=== PATIENT | female | born 1940 | race Caucasian/White ===

== ENCOUNTER → 2016-08-18 | Outpatient (CLI) | payer OTHER ==
[~2016-08-18] MED LIST: ALBUAER2 INH; ALPR-411 PO; AMLO-114 PO; ASPEC81 PO; ASPI81TA21 PO; ASPITAB PO; ATOR10TA88 PO; CALC-393 PO; CHOLTAB3 PO; CLTP PO; HYDR200T5 PO; HYZ/10015 PO; IRON5TAB PO; LXT PO; MECL1TAB42 PO; MECL25TA2 PO; MISCCAP80 PO; OPTIRAY 320 IV PRN; OXYC-57 PO; PARO1TAB27 PO; PRLSR20 PO; PSYL48.59 PO; PXL/40 PO; VNTHFA/IN INH
--- NOTE | 2016-08-18 16:14 | DIAGNOSTIC IMAGING REPORT ---
CT OF THE ABDOMEN AND PELVIS WITH CONTRAST CLINICAL HISTORY: Constipation, abdominal distention and bloating. COMPARISON STUDY: Abdominal ultrasound December 25, 2015. TECHNIQUE: Following IV administration of 92 mL of Optiray-320, axial images of the abdomen and pelvis were obtained from the lung bases to the proximal femurs. Images were reviewed in the axial, sagittal, and coronal planes. IV contrast was administered without complication. Oral contrast was administered. CT DOSE: 989.88 mGy.cm FINDINGS: There is a trace left pleural effusion. There is a large hiatal hernia with intrathoracic stomach with organoaxial rotation. There is no evidence for significant obstruction. There is no biliary ductal dilatation status post cholecystectomy. The heart is moderately enlarged. The liver, spleen, right adrenal gland and pancreas are normal. A 1 cm left adrenal nodule likely reflects an adenoma. Several left renal parapelvic cysts measure up to 4.1 cm. Note is made of a 1.2 cm fat-containing lesion arising from the lower pole of the right kidney consistent with a small angiomyolipoma. Caliber and wall thickness of small and large bowel are normal. There is left colon diverticulosis without evidence for acute diverticulitis. Fat-containing umbilical hernia is noted. There is no bowel obstruction. No lymphadenopathy is present. No suspicious skeletal lesions are identified. IMPRESSION: 1. Large hiatal hernia with intrathoracic stomach with organoaxial rotation. 2. No bowel obstruction. 3. Left colon diverticulosis without evidence for acute diverticulitis. Electronically signed by: Nacho Meng M.D. 08/18/2016 4:12 PM Dictated Date/Time: 08/18/2016 1:22 PM
== END | disposition home or self-care (01) ==
LOC: C.CTS 12:09
PROVIDERS: ATTEND Internal Medicine Gastroenterology
DX: R14.0 Abdominal distension (gaseous) (principal); K59.00 Constipation, unspecified; K44.9 Diaphragmatic hernia without obstruction or gangrene; K57.30 Diverticulosis of large intestine without perforation or abscess without bleeding

== ENCOUNTER 2017-01-10 15:28 | Emergency (ER) | payer OTHER ==
[~2017-01-10] VITALS: Ht 162.6 cm; Wt 101.2 kg
[~2017-01-10 15:28] MED LIST changes: -ASPI81TA21 PO; -ASPITAB PO; -CALC-393 PO; -IRON5TAB PO; -LXT PO; -MECL1TAB42 PO; -OPTIRAY 320 IV PRN; -OXYC-57 PO; -PSYL48.59 PO; -PXL/40 PO; -VNTHFA/IN INH
[2017-01-10 15:30] VITALS: TEMP 36.7; Ht 162.6 cm; Wt 101.2 kg
[2017-01-10] MEDS ORDERED: ONDANSETRON INJ 2 MG/ML 2 ML VIAL IV STA (15:41)
[2017-01-10] MEDS ORDERED: SODIUM CHLORIDE 0.9% 1000ML 1,000 ML IV STA (15:41)
[2017-01-10] MEDS ORDERED: OPTIRAY 320 IV PRN (15:45)
--- NOTE | 2017-01-10 15:47 | EMERGENCY ROOM VISIT NOTE ---
History Report prepared by Chalino: Jayda Baron Under the Supervision of: Dr. Carlos Alberto Contreras D.O. First contact with patient: 15:35 Chief Complaint: ABDOMINAL PAIN Stated Complaint: ABD HERNIA W/ DISCOMFORT,NAUSEA History of Present Illness The patient is a 76 year old female who presents to the Emergency Room with complaints of constant abdominal pressure beginning today. The patient states that she has an abdominal hernia and has had to wait [address] Sprague. She complains of nausea, decreased appetite, and enlargement of the the area of the hernia. She denies any chest pain, shortness of breath, vomiting, and new back pain. She noes a history of cholecystectomy, complete hysterectomy, and chronic constipation. The patient explains that the abdominal pressure is not painful but is worsened with standing. Source of History: patient Onset: today Position: abdomen Quality: pressure Timing: constant Modifying Factors (Worsening): other (standing) Associated Symptoms: + nausea, No chest pain, No SOB, No vomiting, No back pain Note: Pt complains of decreased appetite. Review of Systems See HPI for pertinent positives & negatives. A total of 10 systems reviewed and were otherwise negative. Past Medical & Surgical Surgical Problems: (1) H/O: hysterectomy (2) Hx of cholecystectomy Family History No pertinent family history stated. Social History Smoking Status: Former Smoker Marital Status: Housing Status: lives with family Occupation Status: retired Current/Historical Medications Scheduled Amlodipine (Norvasc), 10 MG PO QAM Aspirin Enteric Coated (Ecotrin Or Generic), 162 MG PO DAILY Atorvastatin (Lipitor), 10 MG PO QPM Calcium Carbonate (Calcium), 600 MG PO QAM Hctz/Losartan (Hyzaar 25MG/100MG), 1 TAB PO QAM Hydroxychloroquine Sulfate (Plaquenil), 200 MG PO QPM Iron-Vitamin C (Iron 100/C), 1 TAB PO EVERY 10 DAYS Omeprazole (Prilosec), 20 MG PO QAM Paroxetine (Paxil), 40 MG PO HS Scheduled PRN Albuterol Hfa (Ventolin Hfa), 2 PUFFS INH QID PRN for Shortness of Breath Alprazolam (Xanax), 0.5 MG PO Q6H PRN for Anxiety/Agitation Meclizine Hcl (Meclizine Hcl), 1 TAB PO TID PRN for Dizziness or Vertigo Allergies Coded Allergies: Meperidine (Verified Adverse Reaction, Severe, B/P, HEART RATE WENT UP- "ROOM WAS SPINNING"., 01/10/17) Physical Exam Vital Signs Date Time Temp Pulse Resp B/P (MAP) Pulse Ox O2 Delivery O2 Flow Rate FiO2 01/10/17 16:53 74 01/10/17 16:51 76 20 160/77 96 Room Air 01/10/17 15:30 36.7 100 20 212/113 94 Room Air Physical Exam GENERAL: Patient is awake, alert, and in no acute distress. Patient is resting comfortably and showing no signs of anxiety EYES: The conjunctivae are clear. The pupils are round and reactive. EARS, NOSE, MOUTH AND THROAT: The nose is without any evidence of any deformity. Mucous membranes are moist tongue is midline NECK: The neck is nontender and supple. RESPIRATORY: Normal respiratory effort is noted there is no evidence of wheezing rhonchi or rales CARDIOVASCULAR: Regular rate and rhythm noted there no murmurs rubs or gallops normal S1 normal S2 GASTROINTESTINAL: The abdomen is mildly distended but soft. Bowel sounds are present in all quadrants. There was a supraumbilical ventral hernia reducible but tender, no guarding or rigidity BACK: No midline tenderness or or step-off noted range of motion in flexion extension as well as rotation no signs of muscle spasm noted MUSCULOSKELETAL/EXTREMITIES: There is no evidence of gross deformity full range of motion is noted in the hips and shoulders SKIN: There is no obvious evidence of any rash. There are no petechiae, pallor or cyanosis noted. NEUROLOGIC: Patient is awake alert and oriented x3 Medical Decision & Procedures ER Provider Diagnostic Interpretation: Radiology results as stated below per my review and radiologist interpretation: CHEST ONE VIEW PORTABLE FINDINGS: The heart is normal in size. There is a retrocardiac opacity consistent with a moderate to large hiatal hernia. There is no failure. There is no focal pulmonary consolidation. No pleural effusions are visualized. There is no free intraperitoneal air.[ IMPRESSION: Hiatal hernia. No acute findings. Electronically signed by: Herman Rodriges M.D. 01/10/2017 4:29 PM Dictated Date/Time: 01/10/2017 4:[address] ABD/PELVIS IV CONTRAST ONLY FINDINGS: Lower chest: There is a moderate to large hiatal hernia. There are no pleural effusions. Liver: The contrast-enhanced liver is normal in size, contour, and attenuation. There is no intrahepatic biliary ductal dilatation. The hepatic veins and portal veins are patent. Gallbladder: Surgically absent Spleen: Normal in size and attenuation. Pancreas: Unremarkable. Adrenal glands: Unremarkable. Kidneys: There is no hydronephrosis. There are 2 left renal cysts measuring 45 mm and 13 mm respectively. There is a 1 cm angiomyolipoma arising from the lower pole the right kidney. Bowel: There aren't no transition zones indicate bowel obstruction. The appendix is surgically absent. There is moderate colonic diverticulosis. No acute peridiverticular inflammatory changes are visualized. There is an enlarging umbilical hernia. There are increased small bowel loops within the hernia sac. There is formed fecal material within several small bowel loops within the hernia sac. There is mild to moderate fecal retention within the right colon. Peritoneum: There is no intraperitoneal free air or abdominal ascites. Vasculature: The abdominal aorta is normal in course and caliber. Adenopathy: None. Pelvic viscera: The uterus appears surgically absent. Skeletal structures: There are multilevel degenerative changes within the lumbar spine. No destructive lesions are visualized. IMPRESSION: 1. No evidence of bowel obstruction. No evidence of free air 2. Enlarging ventral hernia containing increasing small bowel 3. Large hiatal hernia with organoaxial rotation 4. Surgically absent gallbladder and appendix and uterus 5. Diverticulosis. No evidence of acute peridiverticular inflammatory change Electronically signed by: Herman Rodriges M.D. 01/10/2017 5:10 PM Dictated Date/Time: 01/10/2017 5:02 PM Laboratory Results 01/10/17 16:10 Red Blood Count 4.33, Mean Corpuscular Volume 85.5, Mean Corpuscular Hemoglobin 28.4, Mean Corpuscular Hemoglobin Concent 33.2, Mean Platelet Volume 9.6, Neutrophils (%) (Auto) 63.5, Lymphocytes (%) (Auto) 26.2, Monocytes (%) (Auto) 9.9, Eosinophils (%) (Auto) 0.0, Basophils (%) (Auto) 0.2, Neutrophils # (Auto) 2.68, Lymphocytes # (Auto) 1.11, Monocytes # (Auto) 0.42, Eosinophils # (Auto) 0.00, Basophils # (Auto) 0.01 01/10/17 16:10 Test 7/8/17 15:50 01/10/17 16:10 01/10/17 16:18 Urine Color YELLOW Urine Appearance CLOUDY (CLEAR) Urine pH 8.5 (4.5-7.5) Urine Specific Neon 1.019 (1.000-1.030) Urine Protein NEG (NEG) Urine Glucose (UA) NEG (NEG) Urine Ketones NEG (NEG) Urine Occult Blood NEG (NEG) Urine Nitrite NEG (NEG) Urine Bilirubin NEG (NEG) Urine Urobilinogen NEG (NEG) Urine Leukocyte Esterase TRACE (NEG) Urine WBC (Auto) 1-5 /hpf (0-5) Urine RBC (Auto) 0-4 /hpf (0-4) Urine Hyaline Casts (Auto) 0 /lpf (0-5) Urine Epithelial Cells (Auto) 10-20 /lpf (0-5) Urine Bacteria (Auto) NEG (NEG) White Blood Count 4.23 K/uL (4.8-10.8) Red Blood Count 4.33 M/uL (4.2-5.4) Hemoglobin 12.3 g/dL (12.0-16.0) Hematocrit 37.0 % (37-47) Mean Corpuscular Volume 85.5 fL (80-100) Mean Corpuscular Hemoglobin 28.4 pg (25-34) Mean Corpuscular Hemoglobin Concent 33.2 g/dl (32-36) Platelet Count 230 K/uL (130-400) Mean Platelet Volume 9.6 fL (7.4-10.4) Neutrophils (%) (Auto) 63.5 % Lymphocytes (%) (Auto) 26.2 % Monocytes (%) (Auto) 9.9 % Eosinophils (%) (Auto) 0.0 % Basophils (%) (Auto) 0.2 % Neutrophils # (Auto) 2.68 K/uL (1.4-6.5) Lymphocytes # (Auto) 1.11 K/uL (1.2-3.4) Monocytes # (Auto) 0.42 K/uL (0.11-0.59) Eosinophils # (Auto) 0.00 K/uL (0-0.5) Basophils # (Auto) 0.01 K/uL (0-0.2) RDW Standard Deviation 43.2 fL (36.4-46.3) RDW Coefficient of Variation 13.8 % (11.5-14.5) Immature Granulocyte % (Auto) 0.2 % Immature Granulocyte # (Auto) 0.01 K/uL (0.00-0.02) Prothrombin Time 10.4 SECONDS (9.0-12.0) Prothromb Time International Ratio 1.0 (0.9-1.1) Activated Partial Thromboplast Time 28.1 SECONDS (21.0-31.0) Partial Thromboplastin Ratio 1.1 Est Creatinine Clear Calc Drug Dose 82.8 ml/min Estimated GFR () 99.4 Estimated GFR (Non- 85.8 BUN/Creatinine Ratio 16.5 (10-20) Calcium Level 9.0 mg/dl (8.5-10.1) Total Bilirubin 0.5 mg/dl (0.2-1) Direct Bilirubin 0.1 mg/dl (0-0.2) Aspartate Amino Transf (AST/SGOT) 22 U/L (15-37) Alanine Aminotransferase (ALT/SGPT) 25 U/L (12-78) Alkaline Phosphatase 81 U/L (45-117) Troponin I < 0.015 ng/ml (0-0.045) Total Protein 7.1 gm/dl (6.4-8.2) Albumin 3.5 gm/dl (3.4-5.0) Lipase 132 U/L (73-393) Bedside Hemoglobin 12.6 g/dl (12.0-16.0) Bedside Hematocrit 37 % (37-47) Bedside Sodium 135 mEq/L (135-144) Bedside Potassium 3.5 mEq/L (3.3-5.0) Bedside Chloride 95 mEq/L (101-112) Bedside Total CO2 25 mEq/l (24-31) Anion Gap 19.0 mmol/L (16-25) Bedside Blood Urea Nitrogen 12 mg/dl (7-18) Bedside Creatinine 0.7 mg/dl (0.6-1.3) Bedside Glucose (other) 102 mg/dl (70-99) Bedside Ionized Calcium (Kervin) 1.21 mmol/l (1.12-1.32) Laboratory results per my review. Medications Administered Medications (Trade) Dose Ordered Sig/Ezio Route Start Time Stop Time Status Last Admin Dose Admin Sodium Chloride 1,000 ml @ 999 mls/hr Q1H1M STAT IV 01/10/17 15:41 01/10/17 16:41 DC 01/10/17 15:41 999 MLS/HR Ondansetron HCl (Zofran Inj) 4 mg NOW STAT IV 01/10/17 15:41 01/10/17 15:43 DC 01/10/17 15:41 4 MG ECG Indication: abdominal pain Rate (beats per minute): 80 Rhythm: normal sinus Findings: no ectopy, other (no ST segment abnormalities) Comparison ECG Date: 04/19/12 Change: no significant change ED Course 1535: The patient was evaluated in room C8. A complete history and physical examination were performed. 1541: Zofran Inj 4mg IV, NSS 1,000 ml @ 999 mls/hr IV. 1728: I spoke to Dr. Sprague who recommends abdominal binder and will see the patient for her appointment on Thursday. 173: Upon reevaluation, the patient is doing well. I discussed the results and treatment plan with the patient. She verbalized agreement of the treatment plan. The patient was discharged home. Medical Decision Differential diagnosis: Etiologies such as appendicitis, diverticulitis, PUD, biliary pathology, UTI, pancreatitis, obstruction, mesenteric ischemia, aortic pathology, infections, inflammatory bowel disease, renal colic, as well as others were entertained. Medication Reconciliation: I attest that I have personally reviewed the patient' s current medications list. Blood pressure screening: Patient was found to have an elevated blood pressure and was referred to their primary doctor for recheck and further treatment. The patient is a 76-year-old female who presented to the emergency department for an evaluation of abdominal pain. The patient has a history of a ventral hernia which she has an evaluation with a surgeon scheduled this week. The patient states that she was told if pain worsens or she started having signs of obstruction such as nausea and vomiting she should go directly to the emergency department. The patient started having nausea and abdominal tightness. She came to the emergency department for further evaluation. I discussed the patient's laboratory and radiographic studies with her. She did appear to have a significant ventral hernia and I was concerned it could be some bowel obstruction or possibly incarceration although the patient did not have a surgical abdomen on physical exam. I discussed her case with the on-call general surgeon who she is also scheduled with a follow-up appointment with this week. The patient was encouraged to follow-up with the surgeon this week as scheduled. She was also given an abdominal binder in the emergency department. She was also encouraged to rest and avoid any strenuous activity or heavy lifting. She was also encouraged return to emergency department immediately if symptoms change worsen or the need arises. Consults Time Called: 172 Consulting Physician: Dr. Sprague Returned Call: [address] Sprague who recommends abdominal binder and will see the patient for her appointment on Thursday. Impression Primary Impression: Ventral hernia Additional Impression: Abdominal pain Scribe Attestation The scribe's documentation has been prepared under my direction and personally reviewed by me in its entirety. I confirm that the note above accurately reflects all work, treatment, procedures, and medical decision making performed by me. Departure Information Dispostion Home / Self-Care Referrals Colleen Becerra M.D. (PCP) Forms HOME CARE DOCUMENTATION FORM, IMPORTANT VISIT INFORMATION Patient Instructions ED Hernia Inguinal, [facility] Additional Instructions Continue all medications as prescribed. Follow-up with the surgeon as scheduled. Rest and avoid any strenuous activity or heavy lifting. Return to the emergency department immediately if symptoms change worsen or the need arises. Consider getting an abdominal binder to help with some of the pressure with the hernia. Problem Qualifiers Primary Impression: Ventral hernia Obstruction and gangrene presence: without obstruction or gangrene Qualified Codes: K43.9 - Ventral hernia without obstruction or gangrene Additional Impression: Abdominal pain Abdominal location: upper abdomen, unspecified Qualified Codes: R10.10 - Upper abdominal pain, unspecified
[2017-01-10] MEDS ORDERED: ASPI81TA21 PO (15:55)
[2017-01-10] MEDS ORDERED: IRON5TAB PO (15:55)
[2017-01-10] MEDS ORDERED: VNTHFA/IN INH (15:55)
[2017-01-10] MEDS ORDERED: CALC-393 PO (15:55)
[2017-01-10] MEDS ORDERED: MECL1TAB42 PO (15:55)
[2017-01-10] MEDS ORDERED: PXL/40 PO (15:55)
[2017-01-10 16:14] LABS: URINE APPEARANCE CLOUDY (CLEAR); URINE BILIRUBIN NEG (NEG); URINE COLOR YELLOW; URINE NITRITE NEG (NEG); URINE PH 8.5 (4.5-7.5); URINE SPECIFIC GRAVITY 1.019 (1.000-1.030); UROBILINOGEN NEG (NEG)
[2017-01-10 16:18] LABS: MANUAL MICROSCOPIC REQUIRED? NO; REVIEW REQ? NO
[2017-01-10 16:22] LABS: BASO % 0.2 %; BASO ABS # 0.01 K/uL (0-0.2); COMPLETE YES; IG% 0.2 %; LYMPH % 26.2 %; LYMPH ABS # 1.11 K/uL (1.2-3.4); MEAN CELL VOLUME 85.5 fL (80-100); MEAN CORPUSCULAR HEMOGLOBIN 28.4 pg (25-34); MEAN CORPUSCULAR HGB CONC 33.2 g/dl (32-36); MEAN PLATELET VOLUME 9.6 fL (7.4-10.4); MONO % 9.9 %; NEUT % 63.5 %; PLATELET COUNT 230 K/uL (130-400); RED BLOOD COUNT 4.33 M/uL (4.2-5.4); WHITE BLOOD COUNT 4.23 K/uL (4.8-10.8)
--- NOTE | 2017-01-10 16:31 | DIAGNOSTIC IMAGING REPORT ---
CHEST ONE VIEW PORTABLE CLINICAL HISTORY: Abdominal pain COMPARISON STUDY: 01/21/2016 FINDINGS: The heart is normal in size. There is a retrocardiac opacity consistent with a moderate to large hiatal hernia. There is no failure. There is no focal pulmonary consolidation. No pleural effusions are visualized. There is no free intraperitoneal air.[ IMPRESSION: Hiatal hernia. No acute findings. Electronically signed by: Herman Rodriges M.D. 01/10/2017 4:29 PM Dictated Date/Time: 01/10/2017 4:28 PM
[2017-01-10 16:36] LABS: PARTIAL THROMBOPLASTIN RATIO 1.1; PROTHROMBIN TIME (PATIENT) 10.4 SECONDS (9.0-12.0)
[2017-01-10 16:40] LABS: ALT/SGPT 25 U/L (12-78); BLOOD UREA NITROGEN 11 mg/dl (7-18); BUN/CREATININE RATIO 16.5 (10-20); CARBON DIOXIDE 28 mmol/L (21-32); CHLORIDE 99 mmol/L (98-107); CREATININE 0.69 mg/dl (0.60-1.20); GLUCOSE 98 mg/dl (70-99); POTASSIUM 3.5 mmol/L (3.5-5.1); SODIUM 135 mmol/L (136-145)
[2017-01-10 16:45] LABS: ALKALINE PHOSPHATASE 81 U/L (45-117); AST/SGOT 22 U/L (15-37)
[2017-01-10 16:53] LABS: ISTAT CREATININE 0.7 mg/dl (0.6-1.3); ISTAT HEMOGLOBIN 12.6 g/dl (12.0-16.0); ISTAT IONIZED CALCIUM 1.21 mmol/l (1.12-1.32)
--- NOTE | 2017-01-10 17:11 | DIAGNOSTIC IMAGING REPORT ---
CT ABD/PELVIS IV CONTRAST ONLY CLINICAL HISTORY: Increasing abdominal pain. Ventral hernia. COMPARISON STUDY: 08/18/2016 TECHNIQUE: Following the IV administration of 94 mL of Optiray-320, CT scan of the abdomen and pelvis was performed from the lung bases to the proximal femurs. Images are reviewed in the axial, sagittal, and coronal planes. IV contrast was administered without complication. CT DOSE: 908.01 mGy.cm FINDINGS: Lower chest: There is a moderate to large hiatal hernia. There are no pleural effusions. Liver: The contrast-enhanced liver is normal in size, contour, and attenuation. There is no intrahepatic biliary ductal dilatation. The hepatic veins and portal veins are patent. Gallbladder: Surgically absent Spleen: Normal in size and attenuation. Pancreas: Unremarkable. Adrenal glands: Unremarkable. Kidneys: There is no hydronephrosis. There are 2 left renal cysts measuring 45 mm and 13 mm respectively. There is a 1 cm angiomyolipoma arising from the lower pole the right kidney. Bowel: There aren't no transition zones indicate bowel obstruction. The appendix is surgically absent. There is moderate colonic diverticulosis. No acute peridiverticular inflammatory changes are visualized. There is an enlarging umbilical hernia. There are increased small bowel loops within the hernia sac. There is formed fecal material within several small bowel loops within the hernia sac. There is mild to moderate fecal retention within the right colon. Peritoneum: There is no intraperitoneal free air or abdominal ascites. Vasculature: The abdominal aorta is normal in course and caliber. Adenopathy: None. Pelvic viscera: The uterus appears surgically absent. Skeletal structures: There are multilevel degenerative changes within the lumbar spine. No destructive lesions are visualized. IMPRESSION: 1. No evidence of bowel obstruction. No evidence of free air 2. Enlarging ventral hernia containing increasing small bowel 3. Large hiatal hernia with organoaxial rotation 4. Surgically absent gallbladder and appendix and uterus 5. Diverticulosis. No evidence of acute peridiverticular inflammatory change Electronically signed by: Herman Rodriges M.D. 01/10/2017 5:10 PM Dictated Date/Time: 01/10/2017 5:02 PM
[2017-01-10 17:48] VITALS: BP 171/98; PULSE 82; O2SAT 96
[2017-02-12] MEDS ORDERED: ASPITAB PO (15:01)
[2017-02-12] MEDS ORDERED: PSYL48.59 PO (15:03)
[2017-02-12] MEDS ORDERED: LXT PO (15:19)
== END 2017-01-10 17:58 | disposition home or self-care (01) ==
LOC: C.EDB 15:28 → C.EDC 17:58
DX: K43.9 Ventral hernia without obstruction or gangrene (principal); R10.10 Upper abdominal pain, unspecified; Z87.891 Personal history of nicotine dependence; Z79.82 Long term (current) use of aspirin

== ENCOUNTER 2017-02-17 09:21 | Day surgery (SDC) | payer OTHER ==
[2017-02-12 15:01] VITALS: BMI 38.0
[~2017-02-17] VITALS: Ht 162.6 cm; Wt 100.0 kg
[~2017-02-17 09:21] MED LIST changes: -ALBUAER2 INH; -ASPEC81 PO; +ASPI81TA21 PO; +ASPITAB PO; -CHOLTAB3 PO; -CLTP PO; +IRON5TAB PO; +LACTATED RINGER'S 1000ML 1,000 ML IV SCH; +LXT PO; +MECL1TAB42 PO; -MECL25TA2 PO; -MISCCAP80 PO; -PARO1TAB27 PO; +PSYL48.59 PO; +PXL/40 PO; +VNTHFA/IN INH
[2017-02-17 09:55] VITALS: BP 176/88; PULSE 80; TEMP 36.8; O2SAT 94; Ht 162.6 cm; Wt 100.0 kg
--- NOTE | 2017-02-17 10:04 | History & Physical Bridge Note ---
H&P Re-Evaluation Bridge Note: I have examined the patient, reviewed the History & Physical and in the interval since the performance of the History & Physical I have noted the following changes of clinical significance: No changes noted pt marked, to be here later, brought in Rum cake for all to enjoy
[2017-02-17] MEDS ORDERED: DEXAMETHASONE SOD INJ 4 MG/ML VIAL ONE (10:10)
[2017-02-17] MEDS ORDERED: MIDAZOLAM HCL 1 MG/ML 2ML VIAL ONE (10:10)
[2017-02-17] MEDS ORDERED: ROCURONIUM BROMIDE 10 MG/ML 5 ML VIAL ONE (10:10)
[2017-02-17] MEDS ORDERED: NEOSTIGMINE METHYLSULFATE 5 MG/5 ML SYR ONE (10:10)
[2017-02-17] MEDS ORDERED: LIDOCAINE HCL 2% 2 ML VIAL (20MG/ML) ONE (10:10)
[2017-02-17] MEDS ORDERED: GLYCOPYRROLATE INJ 0.2 MG/ML VIAL ONE (10:10)
[2017-02-17] MEDS ORDERED: PROPOFOL IV EMULSION 10 MG/ML 20 ML VIAL IV ONE (10:10)
[2017-02-17] MEDS ORDERED: FENTANYL CITRATE INJ 50 MCG/1 ML 2 ML VIAL ONE ×3 (10:10→12:29)
[2017-02-17] MEDS ORDERED: ONDANSETRON INJ 2 MG/ML 2 ML VIAL ONE (10:10)
[2017-02-17] MEDS ORDERED: BUPIVACAINE 0.5 % 5 MG/1 ML MPF 30ML VIAL ONE (10:27)
[2017-02-17] MEDS ORDERED: BACITRACIN 50000 UNIT VIAL ONE (10:27)
[2017-02-17] MEDS ORDERED: RANITIDINE HCL 25 MG/ML INJ ONE (11:05)
[2017-02-17] MEDS ORDERED: CEFAZOLIN SOD 1 GM VIAL ONE (11:05)
[2017-02-17] MEDS ORDERED: EpHEDrine SULFATE 50MG/5ML SYR ONE (11:12)
[2017-02-17] MEDS ORDERED: PHENYLEPHRINE 100MCG/ML 5ML SYR ONE (11:28)
[2017-02-17] MEDS ORDERED: OXYC-57 PO (12:05)
--- NOTE | 2017-02-17 12:06 | [facility] Operative Report ---
Operative Report Operative Date Feb 17, 2017. Pre-Operative Diagnosis Incisional Hernia Post-Operative Diagnosis Same millicent 5 cm size and abd wall adhesions Procedure(s) Performed Laparoscopic Incisional Hernia Repair and lysis of adhesions with 12.[address] Miguel Shellacker Surgeon(s) Ollie Akers PA-C Estimated Blood Loss 5ml Findings defect millicent 5 cm midline supra umbilicaly adhesions abd wall Specimens none I attest to the content of the Intraoperative Record and any orders documented therein. Any exceptions are noted below.
[2017-02-17] MEDS ORDERED: LACTATED RINGER'S 1000ML 1,000 ML IV SCH (12:07)
--- NOTE | 2017-02-17 12:07 | Discharge Instructions ---
Discharge Instructions Date of Service Feb 17, 2017. Visit Reason for Visit: Incisional Hernia Discharge Discharge Diagnosis / Problem: Laparoscopic hernia repair Discharge Goals Goal(s): Decrease discomfort Activity Recommendations Activity Limitations: as noted below Lifting Limitations: no more than 10 pounds Shower/Bathe: tomorrow Driving or Machine Use: in 1 week Anesthesia . Post Anesthesia Instructions: If you have had General Anesthesia or IV Sedation: * Do not drive today. * Resume driving when surgeon permits. * Do not make important decisions or sign legal documents today. * Call surgeon for: 1. Temperature elevations greater than 101 degrees F. 2. Uncontrollable pain. 3. Excessive bleeding. 4. Persistent nausea and vomiting. 5. Medication intolerance (nausea, vomiting or rash). * For nausea and vomiting use only clear liquids such as: tea, soda, bouillon until nausea subsides, then gradually increase diet as tolerated. * If you have any concerns or questions, call your surgeon's office. If physician is unavailable and it is an emergency, call 911 or go to the nearest emergency room. . Instructions / Follow-Up Instructions / Follow-Up Dr. Miguel in 1 week, call [phone] if you have any questions or need to schedule an appt Diet Recommendations Recommended Home Diet: no limitations Procedures Procedures Performed: Laparoscopic Incisional Hernia Repair and lysis of adhesions with 12.5 SurgiMesh Pending Studies Studies pending at discharge: no Medical Emergencies . Who to Call and When: Medical Emergencies: If at any time you feel your situation is an emergency, please call 911 immediately. . Non-Emergent Contact Non-Emergency issues call your: Surgeon Call Non-Emergent contact if: you have a fever, temperature is above 101.5, your pain is not controlled, wound has increased drainage, wound has increased redness, you have any medication questions . . "Provider Documentation" section prepared by Ollie Akers. . [place] Drug Monitoring Program Search Results: no issues identified
[2017-02-17] MEDS ORDERED: MoRPHine SULFATE 2 MG/ML CARP IV PRN (12:15)
[2017-02-17] MEDS ORDERED: ONDANSETRON INJ 2 MG/ML 2 ML VIAL IV PRN ×2 (12:15→12:30)
[2017-02-17] MEDS ORDERED: ATROPINE SULFATE 0.1 MG/ML 5ML SYR IV PRN (12:30)
[2017-02-17] MEDS ORDERED: FLUMAZENIL 0.1 MG/1 ML 10 ML VIAL IV PRN (12:30)
[2017-02-17] MEDS ORDERED: LABETALOL HCL IV 5 MG/ML 20ML IV PRN (12:30)
[2017-02-17] MEDS ORDERED: FENTANYL CITRATE INJ 50 MCG/1 ML 2 ML VIAL IV PRN (12:30)
[2017-02-17] MEDS ORDERED: NALOXONE HCL 0.4 MG/1 ML VIAL/CARP IV PRN (12:30)
[2017-02-17] MEDS ORDERED: PROMETHAZINE HCL INJ 12.5 MG in SODIUM CHLORIDE 0.9% 50ML 50 ML IV PRN (12:30)
[2017-02-17] MEDS ORDERED: EpHEDrine SULFATE INJ 50 MG/ML AMP IV PRN (12:30)
--- NOTE | 2017-02-17 12:36 | OPERATIVE REPORT ---
DATE OF OPERATION: 02/17/2017 PREOPERATIVE DIAGNOSIS: Supraumbilical incisional hernia. POSTOPERATIVE DIAGNOSIS: Same, approximately 5 cm in size with abdominal wall adhesions. PROCEDURE: Laparoscopic repair supraumbilical midline incisional hernia with 12.5 cm Surgimesh and lysis of abdominal wall adhesions. SURGEON: Dr. Miguel. CLINICAL APPLICATION MANAGER: Vijay Akers PA-C. SUMMARY: After induction of general endotracheal anesthesia, the patient's abdomen was prepped with Betadine scrubbing solution and properly draped. Systemic antibiotics were given. We made a small transverse incision above the umbilicus, made approximately an inch incision. We could palpate a defect which appeared to be 1 fingerbreadth down in the umbilical area. Once we were able to enter this we were able to identify the subcutaneous tissue, there was a prominence of the hernial sac really came out easily. Therefore, I made a small opening in the hernial sac and we controlled hernial sac with a 2-0 Dexon suture. A small opening was made. A 5 mm trocar was directed easily into the abdomen. At this point, CO2 insufflated. We entered the abdominal wall. From our position we could see that the patient had no adhesions to the abdominal wall where we were exactly at, but had some adhesions inferior to the umbilical tissue. We at this point we were able then to place 5 mm right upper quadrant port with preemptive local analgesia, CO2 was insufflated. Camera was placed in right upper quadrant. We could more delineate the defect which was approximated. There were no contents at this time. There were adhesions inferior to the defect in the lower midline area we were able to takedown by placing two 5 mm left upper quadrant and left lower quadrant port. Once we freed this up, actually the muscle fascial planes was pretty well outlined. We were able to delineate the defect itself by using spinal needle outlining the defect. It was about 5 cm or so in diameter. We went on beyond the umbilical area at this time and outlined the area that we would overlap with a 12.5 cm Surgimesh. It would be covering everything overlying the defect on the hernia and below it for about 2-3 cm circumferentially. Once we placed this intraabdominally we actually placed this in the umbilical opening, controlled the pneumoperitoneum by tying off partial the hernial sac in that area and then we were able to elevate essentially in the nylon suture passer right in the middle of the hernial sac and circumferentially placed ProTack approximately 30 of them. Once this had been completed, we were able then to place the polar aspects 2-0 Prolene through separate stab wound attaching part of the mesh to the muscular fascial planes. We did this by placing a piece of Prolene into the abdomen, a suture passer would go through the mesh and on through the normal abdominal wall. Prior to this placement we took down adhesions to the abdominal wall inferior to the hernial sac, so we would be free of that. These were done by sharp dissection. There was no bowel evident, just some omental adhesions to the abdominal wall. The area appeared hemostatic. At this point individual trocars removed. We were able then to pay our attention on the umbilical tissue. As stated the patient had a very prominent hernial sac but we resected part of it, did not take it all the way down to the subfascial planes. We then closed it with running suture to the point that I did not want to reapproximate the fascial planes of the defect itself since we had mesh underneath. Once the area appeared to be satisfactory we closed with 4-0 Monocryl. Steri-Strips applied. The procedure was tolerated well by the patient. Estimated blood loss approximately 5 mL. The patient was taken to recovery room in good condition. I attest to the content of the Intraoperative Record and any orders documented therein. Any exception s are noted below.
[2017-02-17 13:05] VITALS: BP 156/74; PULSE 73; TEMP 36.5; O2SAT 93
--- NOTE | 2017-02-17 13:15 | Anesthesiology Progress Note ---
Anesthesia Post Op Note Date & Time Feb 17, 2017 at 13:15 Vital Signs Pain Intensity: 3 Vital Signs Past 12 Hours Date Time Temp Pulse Resp B/P (MAP) Pulse Ox O2 Delivery O2 Flow Rate FiO2 02/17/17 12:55 36.0 72 12 162/74 93 Room Air 02/17/17 12:45 71 13 167/75 93 Room Air 02/17/17 12:35 68 14 163/72 95 Room Air 02/17/17 12:25 77 24 155/97 100 Oxymask 10 02/17/17 12:15 81 11 172/78 100 Oxymask 10 02/17/17 12:06 36.0 90 24 166/94 100 Oxymask 10 02/17/17 09:55 36.8 80 18 176/88 (117) 94 Room Air Notes Mental Status: alert / awake / arousable, participated in evaluation Pt Amnestic to Procedure: Yes Nausea / Vomiting: adequately controlled Pain: adequately controlled Airway Patency, RR, SpO2: stable & adequate BP & HR: stable & adequate Hydration State: stable & adequate Anesthetic Complications: no major complications apparent
[2017-02-17 13:35] VITALS: BP 154/72; PULSE 73; TEMP 36.5; O2SAT 92
[2017-02-17] MEDS: OXYCODONE/ACETAMINOPHEN 5-325 TAB PO PRN ×2 (13:40→14:29)
[2017-02-17 14:05] VITALS: BP 156/72; PULSE 85; O2SAT 93
== END 2017-02-17 15:00 | disposition home or self-care (01) ==
LOC: C.ACU 09:21
PROVIDERS: ATTEND Surgery
DX: K43.2 Incisional hernia without obstruction or gangrene (principal); K66.0 Peritoneal adhesions (postprocedural) (postinfection); I10 Essential (primary) hypertension; J45.909 Unspecified asthma, uncomplicated; Z87.891 Personal history of nicotine dependence; Z79.82 Long term (current) use of aspirin; Z79.899 Other long term (current) drug therapy